=== PATIENT | male | born 1975 | race American Indian/Alaskan Native ===

== ENCOUNTER 2017-07-14 06:14 | Emergency (ER) | payer OTHER, BC ==
[2017-07-14 07:16] VITALS: BP 144/95
[2017-07-14] MEDS ORDERED: TORADOL IM ONE (09:22)
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
[2017-07-14] MEDS ORDERED: TORADOL ONE (09:26)
== END 2017-07-14 09:55 | disposition home or self-care (01) ==
LOC: ED 06:14
DX: M79.1 Myalgia (principal); I10 Essential (primary) hypertension; E11.9 Type 2 diabetes mellitus without complications; Z87.891 Personal history of nicotine dependence; V03.00XA Pedestrian on foot injured in collision with car, pick-up truck or van in nontraffic accident, initial encounter; Y93.89 Activity, other specified; Y99.8 Other external cause status; Y92.480 Sidewalk as the place of occurrence of the external cause
CPT/HCPCS: 96372; 99282; J1885